=== PATIENT | female | born 1970 | race Caucasian/White ===

== ENCOUNTER → 2016-09-08 | Outpatient (CLI) | payer OTHER ==
[~2016-09-08] MED LIST: ASPIRIN (CHILDR81 MG PO; AVIANE PO; LUTERA-28 TABL1 EACH PO; NITROSTAT0.4 MG SL; PROTONIX20 MG PO
== END | disposition disaster alternative care site (69) ==
LOC: GRAD 13:19
DX: E04.1 Nontoxic single thyroid nodule (principal)

== ENCOUNTER → 2017-03-14 | Outpatient (CLI) | payer OTHER | END | disposition disaster alternative care site (69) | LOC: GRAD 13:49 → GBCOE 14:30 | DX: Z12.31 Encounter for screening mammogram for malignant neoplasm of breast (principal); E04.1 Nontoxic single thyroid nodule | CPT/HCPCS: G0202 ==